=== PATIENT | female | born 1990 | race Caucasian/White ===

== ENCOUNTER 2021-09-27 00:39 | Inpatient (IN) ==
[2021-09-27] MEDS ORDERED: IBUPROFEN 600 MG TAB PO ONE (01:26)
[2021-09-27] MEDS ORDERED: OXYTOCIN 30 UNITS/500 ML BAG IV PRN ×2 (01:26→02:13)
--- NOTE | 2021-09-27 01:34 | History & Physical Report ---
Date of Service September 27, 2021 Assessment & Plan (1) Active labor: Plan: 31 y/o presented in active labor. Shortly after arrival, she underwent SROM and progressed to complete. See delivery note Admission and Anticipated Discharge Date Admission Date: September 27, 2021 History of Present Illness Chief Complaint: Contractions Primary Care Provider: Jadyn Brown 31 y/o at 39 6/7 wga presents w/ c/o ctx increasing in frequency and intensity. She states they started at 11pm q4min and became q2min shortly thereafter. 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 Hx: G1 2017 PPROM 35 wks, G2 2019 at 38 wks G3 Current 2019 pap wnl per pt Denies hx STIs Allergies Allergy/AdvReac Type Severity Reaction Status Date / Time cephalexin [From Keflex] Allergy tongue Verified 09/26/21 13:32 swelling Home Medications Medication Instructions Recorded Confirmed Type prenat.vits,kimberly,vul-vcxu-umrno 1 tab PO DAILY 02/07/21 09/26/21 History progesterone micronized 200 mg VAGINAL DAILY #30 tab 04/26/21 09/26/21 Rx sertraline 25 mg tablet (Zoloft) 50 mg PO DAILY tab 06/07/21 09/26/21 History ondansetron HCl 4 mg tablet 4 mg PO Q6H #30 tab 07/26/21 09/26/21 Rx (Zofran) Patient History Medical History (Updated 09/27/21 @ 01:34 by Hope Sultana MD) Depression History of chicken pox Surgical History History of colposcopy S/P ACL repair S/P breast augmentation S/P shoulder surgery Family History Father Heart disease Diabetes Denies family history of Ovarian cancer Breast cancer Colorectal cancer Social History Smoking Status: Never smoker Second Hand Exposure: No; Do You Dip or Chew Tobacco: No; Hx Alcohol Use: No Hx Substance Use: No Preferred Language: Cuban Communication Ability: Effective Manufacturer Agent Required: No Beliefs That Will Affect Care: None marital status: marital status details: Jan Arthur (33) [phone] Current Living Situation: Spouse and Family Current Living Situation Comment: 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 spouse, 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, 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, 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 occupational status: student current occupation: [employer] Other Information That Helps Us Care for You: No Feels Safe at Home: Yes Safety Concerns: Feels Safe At This Time Assistive Devices: None Physical Exam Genitourinary: Manual OB Exam: + cervical dilation 8 cm Results & Data ([facility]) Vital Signs (Past 12 Hours) Vital Signs Pulse BP 09/27/21 01:22 55 L 140/94 09/27/21 00:50 81 155/83 H Laboratory Results OB Labs: Blood Type AB Positive 02/15/21 Antibody ScreenD NEGATIVE 02/15/21 Hemoglobin 12.1 g/dL (12.0-16.0) 07/05/21 Hematocrit 36.5 % (37-47) L 07/05/21 Mean Corpuscular Volume 92.1 fL (80-100) 02/15/21 Platelet Count 215 K/uL (130-400) 02/15/21 Rubella IgG Antibody Immune (Immune) 02/15/21 Rapid Plasma Reagin Nonreactive (Nonreactive) 02/15/21 Hepatitis B Surface Antigen Neg (Neg) 02/15/21 HIV (1&2) Ab and P24 Ag, 4th Gener Neg (Neg) 02/15/21 Glucose 1 Hour 50 gm Load 175 mg/dl (70-130) H 07/05/21 Maternal Serum Alpha Fetoprotein 42.4 ng/mL 04/12/21 OB Optional Labs: Chlamydia trachomatis RNA NOT DETECTED (NOT DETECTED) 02/15/21 Neisseria gonorrhoeae RNA NOT DETECTED (NOT DETECTED) 02/15/21 Thyroid Stimulating Hormone (TSH) 0.859 uIu/ml (0.300-4.500) 07/20/20 Alpha Fetoprotein Triple Screen SEE NOTE 04/12/21 Labs Reviewed: cfdna low risk cf/sma neg afp neg--akh Normal 2hr GTT 07/09 Coding Level of Care Code None Diagnoses Active labor
--- NOTE | 2021-09-27 01:39 | Delivery Summary ---
Vaginal Delivery Summary Date of Service September 27, 2021 Vaginal Delivery Summary [facility] PREOPERATIVE DIAGNOSIS: 1. Single intrauterine at 39 6/7 wga 2. Labor 3. GBS+ 4. Hx PPROM and PTD POSTOPERATIVE DIAGNOSIS: 1. Single intrauterine at 39 6/7 wga 2. Labor 3. GBS+ 4. Hx PPROM and PTD 5. Delivered PROCEDURE: 1. Normal spontaneous vaginal delivery (precipitous) SURGEON: Hope Sultana MD ANESTHESIA: None ESTIMATED BLOOD LOSS: 300 mL FLUIDS: Continuous LR. URINE OUTPUT: None. COMPLICATIONS: None. CONDITION: Stable. INDICATIONS: 31 y/o at 39 6/7 wga presented in active labor at 8cm approx 1hr after she noted ctx to start regularly. She underwent SROM and rapidly progressed to complete and desired to push. FINDINGS: A viable female infant, weight pending with Apgars of 8 and 8 at 1 and 5 minutes respectively. SPECIMEN: Cord blood, cord gases OPERATIVE REPORT: The patient progressed to 10 cm, 100% effaced and +2 station, pushed over intact perineum without anesthesia to deliver a viable female infant, weight and Apgars as above. Head of delivered in ROBYN position. No nuchal cord was present. Body and shoulders were delivered without difficulty. was delivered to maternal abdomen and nursing staff. Delayed cord clamping was performed for 60 seconds. Cord was clamped and cut. Cord blood was obtained. Placenta delivered spontaneously intact with 3-vessel cord. IV oxytocin and fundal massage were given for excellent hemostasis. Vagina, cervix, perineum, and placenta were inspected. The perineum and bilateral labia were noted to be scraped but hemostatic and not needed to be repaired. Sponge and needle counts correct x2. No sponges were left behind. Mother and stable in immediate period. [facility] Vaginal Delivery Codes: 64561 global code for the antepartum, delivery, and post- Delivery Type Details: [facility]
[2021-09-27 01:59] LABS: Hematocrit (blood only) 38.1 % (37-47); Hemoglobin 12.7 g/dL (12.0-16.0); Mean Corpuscular Hemoglobin 31.3 pg (25-34); Mean Corpuscular Hgb Conc 33.3 g/dL (32-36); Mean Corpuscular Volume 93.8 fL (80-100); Mean Platelet Volume 10.8 fL (7.4-10.4); Platelet Count 184 K/uL (130-400); RDW Coefficient of Variation 14.2 % (11.5-14.5); RDW Standard Deviation 48.4 fL (36.4-46.3); Red Blood Count 4.06 M/uL (4.2-5.4); White Blood Count 14.01 K/uL (4.8-10.8)
[2021-09-27] MEDS ORDERED: DIPHTHERIA/TETANUS/PERTUSSIS 0.5 ML SYR/VIAL IM ONE (02:13)
[2021-09-27] MEDS ORDERED: BENZOCAINE 20% AER SPR 82.5 GM CAN EXT PRN (02:13)
[2021-09-27] MEDS ORDERED: bisacodyL 10 MG SUPP PR PRN (02:13)
[2021-09-27] MEDS ORDERED: ACETAMINOPHEN 325 MG TAB PO PRN (02:13)
[2021-09-27] MEDS ORDERED: HYDROCORTISONE ACETATE 25 MG SUPP PR PRN (02:13)
[2021-09-27 04:11] LABS: Base Excess Cord Arterial Bld 0.6 mEq/L (-9-1.8); Base Excess Cord Venous Blood 0.6 mEq/L (-7.7-1.9); CO2 Cord Arterial Blood 35 mmHg (39.1-73.5); Cord Venous Blood HCO3 24 mmol/L (18.4-26.8); Cord Venous Blood PCO2 36 mmHg (30.4-57.2); Cord Venous Blood PO2 29 mmHg (14.1-43.3); Cord Venous Blood pH 7.45 (7.20-7.44); HCO3 Cord Arterial Blood 24 mmol/L (19.7-28.5); PO2 Cord Arterial Blood 31 mmHg (4.1-31.7); pH Cord Arterial Blood 7.45 (7.1-7.38)
[2021-09-27] MEDS: IBUPROFEN 600 MG TAB PO PRN ×2 (08:20→20:20)
[2021-09-27] MEDS: DOCUSATE SODIUM 100 MG CAP PO SCH ×2 (08:20→20:15)
[2021-09-27] MEDS: PRENATAL VITAMIN 1 TAB PO SCH (08:20)
[2021-09-27] MEDS ORDERED: SERTRALINE HCL 50 MG TABLET PO SCH ×2 (09:00→21:00)
[2021-09-27] MEDS ORDERED: Nursing to Pharmacy Communication SCH (13:45)
--- NOTE | 2021-09-28 06:03 | Obstetrical Progress Note ---
Date of Service <Fátima Zuniga DO - Last Filed: 09/28/21 07:40> September 28, 2021 Assessment & Plan <Fátima Zuniga DO - Last Filed: 09/28/21 07:40> (1) Encounter for care and examination after delivery: 31 yo post op day1 from with GBS+ urine, doing well. -Continue routine post care. -vital signs reviewed and WNL (Tmax 36.8) -Blood Type AB+, GBS+ did not receive penicillin, Rubella immune -Encourage ambulation, monitor and control pain with Motrin, tylenol PRN, resume regular diet, monitor lochia -encourage breast feeding -hemoglobin 12.7 -patient comfortable going home today Day #:: 1 <Edith Hope, - Last Filed: 09/28/21 07:53> (1) Encounter for care and examination after delivery: Subjective <Fátima Zuniga DO - Last Filed: 09/28/21 07:40> Ambulation: ambulating normally Voiding: no voiding problems Passing Gas:: Yes Diet Tolerance:: regular diet Lochia:: Small Feeding Type:: breast feeding Current Pain Level(1-10): 2 Review of Systems Denies fever, chills, sweats Denies shortness of breath, difficulty breathing, chest pain, palpitations, chest pressure. Denies breast pain. Denies dysuria. Denies headache or changes in vision. Physical Exam <Fátima Zuniga DO - Last Filed: 09/28/21 07:40> General: Alert, oriented. No acute distress. Cardiac: Regular rate and rhythm, no murmurs/rubs/gallops. Respiratory: Clear to auscultation bilaterally a/p, no wheezes/rales/rhonchi. No increased work of breathing. Symmetrical chest rise. No respiratory distress. Abdomen: Soft, nontender, nondistended. Bowel sounds present. Uterus: Uterine fundus firm, palpable 1 cm below umbilicus. Lower Extremities: No lower extremity edema or swelling. No deep calf pain. Corky's negative bilaterally.. Results & Data ([facility]) <Fátima Zuniga DO - Last Filed: 09/28/21 07:40> Vital Signs (Past 12 Hours) Vital Signs Temp Pulse Resp BP Pulse Ox 09/27/21 23:30 36.8 C 57 L 16 99/65 L 96 09/27/21 19:50 36.8 C 60 16 117/73 97 <Edith Hope DO - Last Filed: 09/28/21 07:53> Co-Signing Physician Notes Resident Physician Supervision Note: I was present with Dr. Zuniga during the history and exam. I discussed the case with the resident and agree with the findings and plan as documented in the note. Any exceptions or clarifications are listed here: PPD#1 doing well. Desires DC home. Documented By: Edith Hope DO Resident Activity Tracking <Fátima Zuniga DO - Last Filed: 09/28/21 07:40> Resident Involvement: Resident Care Provided Care Provided: Adult Hospital Medicine
[2021-09-28] MEDS: IBUPROFEN 600 MG TAB PO PRN (08:16)
[2021-09-28] MEDS: PRENATAL VITAMIN 1 TAB PO SCH (08:16)
[2021-09-28] MEDS: DOCUSATE SODIUM 100 MG CAP PO SCH (08:16)
[2021-09-28] MEDS ORDERED: bisacodyL 5 MG TABEC PO SCH (20:00)
== END 2021-09-28 13:10 | disposition home or self-care (01) | DRG 807 ==
LOC: OPB 00:39 → 4S1 00:42 → 4S2 16:05
DX: Z37.0 Single live birth; O62.3 Precipitate labor; Z88.1 Allergy status to other antibiotic agents; O99.820 Streptococcus B carrier state complicating pregnancy; Z3A.40 40 weeks gestation of pregnancy; Z83.3 Family history of diabetes mellitus

== ENCOUNTER 2023-12-16 21:43 | Observation (INO) ==
[2023-12-16 22:45] LABS: Basophils # (auto) 0.08 K/uL (0.00-0.20); Basophils % (auto) 1.5 %; Eosinophils # (auto) 0.59 K/uL (0.00-0.50); Eosinophils % (auto) 10.8 %; Hematocrit (blood only) 45.1 % (37.0-47.0); Hemoglobin 15.3 g/dl (12.0-16.0); Immature Granulocytes # (auto) 0.01 K/uL (0.01-0.20); Immature Granulocytes % (auto) 0.2 %; Lymphocytes % (auto) 29.3 %; Mean Corpuscular Hemoglobin 30.7 pg (25.0-34.0); Mean Corpuscular Hgb Conc 33.9 g/dL (32.0-36.0); Mean Corpuscular Volume 90.4 fL (80.0-100.0); Mean Platelet Volume 10.5 fL (9.4-12.4); Monocytes # (auto) 0.54 K/uL (0.11-0.59); Monocytes % (auto) 9.9 %; Neutrophils # (auto) 2.64 K/uL (1.40-6.50); Neutrophils % (auto) 48.3 %; Platelet Count 179 K/uL (130-400); RDW Standard Deviation 39.8 fL (36.4-46.3); Red Blood Count 4.99 M/uL (4.20-5.40); White Blood Count 5.46 K/ul (4.8-10.8)
[2023-12-16 22:55] LABS: Appearance Urine Clear (Clear); Bacteria Urine Automated None Seen (None Seen); Bilirubin Urine Negative (Negative); Blood Urine Negative (Negative); Cast Urine Automated 0-2 /lpf (0-2); Color Urine Yellow; Epithelial Cell Urine Auto 0-2 /hpf (0-2); Glucose Urine UA Negative (Negative); Ketones Urine Negative (Negative); Leukocyte Esterase Urine Trace (Negative); Nitrite Urine Negative (Negative); Protein Urine Negative (Negative); RBC Urine Automated 0-2 /hpf (0-2); Specific Gravity Urine 1.005 (1.000-1.030); Urobilinogen Urine Negative (Negative); WBC Urine Automated 0-5 /hpf (0-5); pH Urine 7.5 (4.5-7.5)
[2023-12-16 23:03] LABS: BUN Creatinine Ratio 13.9 (10-20); Calcium 9.6 mg/dl (8.6-10.3); Est GFR (African American) 125.8 ml/min; Est GFR (Non-African American) 108.5 ml/min
[2023-12-16 23:04] LABS: Pregnancy Test, Serum Negative (Negative)
[2023-12-16 23:09] LABS: Albumin Globulin Ratio 1.8 (0.9-2); Albumin Level 4.8 gm/dl (3.4-5.0); Bilirubin,Total 0.6 mg/dl (0.2-1.0); Globulin 2.7 gm/dl (2.5-4.0); Total Protein 7.5 gm/dl (6.0-8.3)
[2023-12-16] MEDS: SUCRALFATE 1 GM/10 ML UDC PO STA (23:10)
[2023-12-16] MEDS: FAMOTIDINE 20MG IV PUSH 20 MG/5 ML SYR IV STA (23:10)
[2023-12-16] MEDS: SODIUM CHLORIDE 0.9% 1,000 ML IV ONE (23:13)
[2023-12-16] MEDS: PANTOprazole 40 MG in SYRINGE 0 ML IV ONE (23:46)
--- NOTE | 2023-12-17 | Emergency Department Note ---
History of Present Illness General Chief complaint: Abdominal Pain Stated complaint: UPPER ABD PAIN, NAUSEA, POOR APPETITE Time Seen by Provider: 12/16/23 22:49 History of Present Illness Maximum Pain Intensity: 4 This 33-year-old female who states she is healthy with no active medical problems presents the ER complaining of epigastric discomfort for the past 2 days. She has tried multiple antacids with no relief of symptoms. 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 Patient denies chest pain, dyspnea, diarrhea, flulike illness. No other concerns per patient. Home Medications Medication Instructions Recorded Confirmed Type cod liver oil 1 cap PO 2XWK 06/27/23 12/17/23 History duloxetine 60 mg capsule,delayed 60 mg PO DAILY #30 caps 10/30/23 12/17/23 Rx release ipratropium bromide 21 mcg (0.03 2 spray intranasal BID #30 mL 11/13/23 12/17/23 Rx %) nasal spray fluticasone propionate 110 1 puff inhalation BID #12 grams 11/25/23 12/17/23 Rx mcg/actuation HFA aerosol inhaler Noro-Mag 145 mg PO DAILY 12/17/23 12/17/23 History cyclobenzaprine 5 mg tablet 5 - 10 mg PO DIRECTED PRN 12/17/23 12/17/23 History muscle spasm Allergies Allergy/AdvReac Type Severity Reaction Status Date / Time cephalexin [From Keflex] Allergy Severe tongue Verified 12/17/23 00:41 swelling Past Med/Surg History Medical History History of chicken pox Depression Surgical History History of colposcopy S/P breast augmentation S/P shoulder surgery S/P ACL repair Family History Father Heart disease Diabetes Mother Hyperparathyroidism Osteoporosis Depression Denies family history of Ovarian cancer Breast cancer Colorectal cancer Uterine cancer Social History Smoking Status: Never smoker Second Hand Exposure: No; Do You Dip or Chew Tobacco: No; Hx Alcohol Use: Yes Alcohol type: wine Alcohol Intake Frequency: 2-4 x/Month Hx Substance Use: No Preferred Language: Armenian Communication Ability: Effective Visual Impairment: No Limitations Hearing Ability: Normal [place] Man Required: No Beliefs That Will Affect Care: None marital status: marital status details: Jan Arthur (36) [phone] Current Living Situation: Spouse and Family Current Living Situation Comment: lives with spouse, 3 children, 3 dogs current occupational status: employed 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 How many Children do You have: 3 Feels Safe at Home: Yes Childhood Exposure to Second-Hand Smoke: No Diet: regular caffeine: Yes (3 cups of coffee) during the past year weight has: remained stable Dental Care, Regularly: Yes Physical Activity Frequency: 5-6 Times per Week Seatbelt Use: always Sunscreen Use: Yes Assistive Devices: None Review of Systems A total of 10 systems reviewed and were otherwise negative Physical Exam Vital Signs Vital Signs - 24 hr 12/16/23 21:50 12/16/23 22:00 12/16/23 22:14 Temperature 36.5 C Temperature Source Temporal Artery Scan Pulse Rate 77 65 Pulse Rate [Left Apical] 69 Respiratory Rate 18 17 Respiratory Effort / Characteristics Non-Labored Respiratory Depth Normal Respiratory Pattern Blood Pressure 118/81 Blood Pressure [Right Arm] 130/86 Blood Pressure Mean 93 Blood Pressure Mean [Right Arm] 100 Blood Pressure Position Sitting Pulse Oximetry 98 99 Oxygen Delivery Method Room Air Room Air Sepsis Recent Fever Within 48 Hours No Sepsis New/Unexplained Change in Mental Status No Sepsis Action Taken by Nursing No Action Required 12/16/23 22:20 12/16/23 22:43 12/17/23 00:00 Temperature Temperature Source Pulse Rate 64 Pulse Rate [Left Apical] 62 66 Respiratory Rate 23 16 18 Respiratory Effort / Characteristics Non-Labored Non-Labored Spontaneous Respiratory Depth Normal Normal Respiratory Pattern Regular Blood Pressure Blood Pressure [Right Arm] 113/76 120/80 Blood Pressure Mean Blood Pressure Mean [Right Arm] 88 93 Blood Pressure Position Pulse Oximetry 95 95 98 Oxygen Delivery Method Room Air Room Air Room Air Sepsis Recent Fever Within 48 Hours Sepsis New/Unexplained Change in Mental Status Sepsis Action Taken by Nursing VITALS: Vitals are noted on the nurse's note and reviewed by myself. Vital signs stable. GENERAL: Pleasant female, in no acute distress, nondiaphoretic, well-developed well-nourished. SKIN: Capillary reflex less than 2 seconds. HEENT: Normocephalic. PERRLA. EOMI. Nares patent. Mucous membranes moist. Neck is supple without nuchal rigidity. HEART: Regular rate and rhythm LUNGS: Clear to auscultation bilaterally without wheezes, rales or rhonchi. No retractions or accessory muscle use. ABDOMEN: Positive bowel sounds x 4. Normal tympanic percussion. Soft, tender epigastric right upper quadrant, without masses or organomegaly. No guarding or rebound tenderness. no CVA tenderness MUSCULOSKELETAL: No gross musculoskeletal defects. NEURO: Patient was alert and oriented to person place and time. No focal neurological deficits. Course Administered Medications Metronidazole (Flagyl) 500 mg in 100 mls @ 100 mls/hr IV NOW STA; Protocol Stop: 12/17/23 01:34 Last Admin: 12/17/23 00:55 Dose: 100 mls/hr Documented By: BREEZY Discontinued Medications Pantoprazole Sodium 40 mg/ (Syringe) 10 mls @ 5 mls/min IV NOW ONE Stop: 12/16/23 23:01 Last Admin: 12/16/23 23:46 Dose: 5 mls/min Documented By: BREEZY Famotidine (Pepcid 20mg Iv Push) 20 mg in 5 mls @ 2.5 mls/min IV NOW STA Stop: 12/16/23 23:01 Last Admin: 12/16/23 23:10 Dose: 2.5 mls/min Documented By: BREEZY Sodium Chloride (Nss) 1,000 mls @ 999 mls/hr IV .Q1H1M ONE Stop: 12/17/23 00:09 Last Infusion: 12/17/23 00:21 Dose: Infused Documented By: Admin: 12/16/23 23:13 Dose: 999 mls/hr Documented By: BREEZY Sucralfate (Sucralfate 1 Gm/10 Ml Udc) 1 gm PO NOW STA Stop: 12/16/23 23:01 Last Admin: 12/16/23 23:10 Dose: 1 gm Documented By: BREEZY Medical Decision Making Medical Records Attestation: I reviewed the patient's medical records. Home Medications Current Medication List: was personally reviewed by me Laboratory Data Attestation: I reviewed the patient's lab results. 12/16/23 21:58 12/16/23 21:58 Lab Results 12/16/23 12/16/23 Range/Units 21:58 22:30 WBC 5.46 (4.8-10.8) K/ul RBC 4.99 (4.20-5.40) M/uL Hgb 15.3 (12.0-16.0) g/dl Hct 45.1 (37.0-47.0) % MCV 90.4 (80.0-100.0) fL MCH 30.7 (25.0-34.0) pg MCHC 33.9 (32.0-36.0) g/dL RDW Std Deviation 39.8 (36.4-46.3) fL RDW Coeff of Paul 12.0 (11.5-14.5) % Plt Count 179 (130-400) K/uL MPV 10.5 (9.4-12.4) fL Immature Gran % (Auto) 0.2 % Neut % (Auto) 48.3 % Lymph % (Auto) 29.3 % Pratt % (Auto) 9.9 % Eos % (Auto) 10.8 % Baso % (Auto) 1.5 % Neut # (Auto) 2.64 (1.40-6.50) K/uL Lymph # (Auto) 1.60 (1.20-3.40) K/uL Pratt # (Auto) 0.54 (0.11-0.59) K/uL Eos # (Auto) 0.59 H (0.00-0.50) K/uL Baso # (Auto) 0.08 (0.00-0.20) K/uL Immature Gran # (Auto) 0.01 (0.01-0.20) K/uL PT 13.0 H (9.0-12.0) Seconds INR 1.2 H (0.9-1.1) APTT 33 H (21-31) Seconds PTT Ratio 1.2 Sodium 137 (136-145) mmol/L Potassium 4.0 (3.5-5.1) mmol/L Chloride 100 (98-107) mmol/L Carbon Dioxide 30 (21-32) mmol/L Anion Gap 7 (3-11) BUN 10 (6-23) mg/dl Creatinine 0.72 (0.6-1.2) mg/dl Est Cr Clr Drug Dosing 110.0 ml/min Est GFR ( Amer) 125.8 ml/min Est GFR (Non-Af Amer) 108.5 ml/min BUN/Creatinine Ratio 13.9 (10-20) Glucose 82 (70-99(Fasting)) mg/dl Calcium 9.6 (8.6-10.3) mg/dl Total Bilirubin 0.6 (0.2-1.0) mg/dl AST 1142 H (13-39) U/L ALT 2278 H (7-52) U/L Alkaline Phosphatase 88 (34-104) U/L Total Creatine Kinase 53 (26-192) U/L Total Protein 7.5 (6.0-8.3) gm/dl Albumin 4.8 (3.4-5.0) gm/dl Globulin 2.7 (2.5-4.0) gm/dl Albumin/Globulin Ratio 1.8 (0.9-2) Lipase 27 (11-82) U/L HCG, Qual Negative (Negative) Urine Color Yellow Urine Appearance Clear (Clear) Urine pH 7.5 (4.5-7.5) Ur Specific Tate 1.005 (1.000-1.030) Urine Protein Negative (Negative) Urine Glucose (UA) Negative (Negative) Urine Ketones Negative (Negative) Urine Blood Negative (Negative) Urine Nitrite Negative (Negative) Urine Bilirubin Negative (Negative) Urine Urobilinogen Negative (Negative) Ur Leukocyte Esterase Trace H (Negative) Urine WBC (Auto) 0-5 (0-5) /hpf Urine RBC (Auto) 0-2 (0-2) /hpf U Hyaline Cast (Auto) 0-2 (0-2) /lpf U Epithel Cells (Auto) 0-2 (0-2) /hpf Urine Bacteria (Auto) None Seen (None Seen) Acetaminophen 9 L (10-30) ug/ml Monoscreen Negative (Negative) Imaging Data Attestation: I personally reviewed and interpreted this imaging study as follows: Radiologist's Impression: Gallbladder Ultrasound 12/16/23 23:00 Exam(s): US GALLBLADDER EXAM: US Abdomen Limited, Gallbladder CLINICAL HISTORY: Reason for exam: epi pain. TECHNIQUE: Real-time ultrasound of the right upper quadrant with image documentation. COMPARISON: No relevant prior studies available. FINDINGS: Gallbladder: Extensive gallbladder wall thickening measuring 1 cm in thickness. Gallbladder is nondistended. Trace pericholecystic fluid. No cholelithiasis. Common bile duct: Common bile duct measures 1.9 mm diameter. No stones. No dilation. Pancreas: Unremarkable as visualized. IMPRESSION: Findings suggestive acute cholecystitis. Clinical correlation recommended. Electronically signed by: Donny Ramos MD 12/17/23 00:20 AM MDM Narrative Prior records/ancillary studies reviewed. Triage Nursing notes reviewed. Additional history obtained from nursing. The patient's history was concerning for abdominal pain. Differential diagnosis: Etiologies such as appendicitis, diverticulitis, PUD, biliary pathology, UTI, pancreatitis, obstruction, mesenteric ischemia, aortic pathology, infections, inflammatory bowel disease, renal colic, as well as others were entertained. Physical examination findings: As above. ER treatment provided: An order was placed for continuous cardiac monitoring. The monitor shows a rate of 60-100 with a sinus rhythm per my Independent interpretation. IV fluids, Carafate, Protonix, Pepcid was ordered Cipro and Flagyl were ordered for acute cholecystitis On reassessment the patient felt better. Diagnostics interpreted by me: ECG: Ordered for upper abdominal pain EKG: Normal sinus, normal intervals, no acute ST-T wave changes. Impression normal sinus rhythm independently interpreted by myself The labs Independently Interpreted by myself revealed elevated LFTs. Normal bilirubin. No worrisome leukocytosis. Normal platelets. Hepatitis panel sent Imaging studies: Ultrasound as above Consultation: A consultation was placed with the surgeon, Dr. Lemons. The case was discussed and diagnostics were reviewed. He recommends medical admission and a HIDA scan. Medicine was consulted and the case was discussed. Patient be admitted to the medical service. The patient was evaluated in the ER for further treatment. Exam and history seem consistent with acute cholecystitis with elevated liver functions. Patient started on antibiotics. Medicine and surgery were consulted and the case was discussed. She will be admitted to the medical service for further evaluation and workup. Surgery is requesting a HIDA scan. Patient is agreeable treatment plan. Normal bilirubin. Normal lipase. No common bile duct dilation By the evaluation outlined above emergent etiologies such as appendicitis, diverticulitis, PUD, UTI, pancreatitis, mesenteric ischemia, aortic pathology, inflammatory bowel disease, renal colic, as well as others were deemed relatively unlikely. The pt informed about the findings as listed above. All questions were answered and pleased with the treatment. The chart was completed utilizing [employer] voice recognition software. Grammatical errors, random word insertions, pronoun errors, and incomplete sentences are an occassional consequence of this system due to software limitations, ambient noise, and hardware issues. Any formal questions or concerns about the content, text, or information contained within the body of this dictation should be directly addressed to the physician circulation assistant for clarification. Impression & Plan Acute cholecystitis, Transaminitis Discharge Plan Visit Data Chief Complaint: Abdominal Pain Stated Complaint: UPPER ABD PAIN, NAUSEA, POOR APPETITE ED Provider: Bhumi Angela ED Midlevel Provider: Su Krause Discharge Problem: Acute cholecystitis, Transaminitis Patient Disposition: Admitted As Inpatient Condition: Good Discharge Instructions Interventions: ED Discharge Assessment Last Done: 12/17/23 01:32 Forms Stand Alone Forms: [facility] [employer] Prescriptions Prescriptions: No Action duloxetine 60 mg capsule,delayed release(DR/EC) 60 mg PO DAILY Qty: 30 6RF Rx Instructions: pt aware dose change ipratropium bromide 21 mcg (0.03 %) spray,non-aerosol 2 spray intranasal BID Qty: 30 4RF Rx Instructions: administer into each nostril fluticasone propionate 110 mcg/actuation HFA aerosol inhaler 1 puff inhalation BID Qty: 12 2RF cod liver oil Capsule 1 cap PO 2XWK Noro-Mag 145 mg PO DAILY cyclobenzaprine 5 mg tablet 5 - 10 mg PO DIRECTED PRN (Reason: muscle spasm) Referrals Referrals: Jaja Ge CRNP [Primary Care Provider] -
[2023-12-17 00:10] LABS: INR 1.2 (0.9-1.1); Partial Thromboplastin Ratio 1.2; Partial Thromboplastin Time 33 Seconds (21-31)
--- NOTE | 2023-12-17 00:14 | History & Physical Report ---
Date of Service December 17, 2023 Assessment & Plan (1) Acute cholecystitis: Plan: - noting on US, HIDA scan pending - ED discussed with general surgery; will consult - transaminitis noted, INR= 1.2; continue to trend - Continue cipro, flagyl - Morphine prn q4H for pain- 2mg pain 6-8, 4mg pain 9-10 -NPO pending surgery eval- maintenance fluids with LR@100ml/hr (2) Transaminitis: Plan: Plan as per above (3) Anxiety: Plan: - continue home medications; duloxetine Plan Diet: NPO pending surgery evaluation Code: Full VTE Prophylaxis: SCD, hold chemical pending surgery evaluation History of Present Illness Primary Care Provider: JEB Ramirez 33 year old female with a past medical history of anxiety presenting with fever x 3 days and RUQ pain. Pain x 2 days. Worst RUQ, decreased appetite. Denies chest pain, dyspnea, diarrhea, constipation. Tried anti-acids at home with minimal relief. 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 No prior abd ominal surgeries. In ED- transaminitis with GGX=[id number], NAU=3078. Gallbladder US with acute cholecystitis, no cholelithiasis. Allergies Allergy/AdvReac Type Severity Reaction Status Date / Time cephalexin [From Keflex] Allergy Severe tongue Verified 12/17/23 00:41 swelling Home Medications Medication Instructions Recorded Confirmed Type cod liver oil 1 cap PO 2XWK 06/27/23 12/17/23 History duloxetine 60 mg capsule,delayed 60 mg PO DAILY #30 caps 10/30/23 12/17/23 Rx release ipratropium bromide 21 mcg (0.03 2 spray intranasal BID #30 mL 11/13/23 12/17/23 Rx %) nasal spray fluticasone propionate 110 1 puff inhalation BID #12 grams 11/25/23 12/17/23 Rx mcg/actuation HFA aerosol inhaler Noro-Mag 145 mg PO DAILY 12/17/23 12/17/23 History cyclobenzaprine 5 mg tablet 5 - 10 mg PO DIRECTED PRN 12/17/23 12/17/23 H istory muscle spasm Past Med/Surg History Medical History History of chicken pox Depression Surgical History History of colposcopy S/P breast augmentation S/P shoulder surgery S/P ACL repair Family History Father Heart disease Diabetes Mother Hyperparathyroidism Osteoporosis Depression Denies family history of Ovarian cancer Breast cancer Colorectal cancer Uterine cancer Social History Smoking Status: Never smoker Second Hand Exposure: No; Do You Dip or Chew Tobacco: No; Hx Alcohol Use: Yes Alcohol type: wine Alcohol Intake Frequency: 2-4 x/Month Hx Substance Use: No Preferred Language: Turkmen Communication Ability: Effective Visual Impairment: No Limitations Hearing Ability: Normal Shield Cleaner Required: No Beliefs That Will Affect Care: None marital status: marital status details: Jan Arthur (36) [phone] Current Living Situation: Family Current Living Situation Comment: lives in 2 story home with and 3 yound children current occupational status: employed 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 How many Children do You have: 3 Other Information That Helps Us Care for You: No Feels Safe at Home: Yes Safety Concerns: Feels Safe At This Time Childhood Exposure to Second-Hand Smoke: No Diet: regular caffeine: Yes (3 cups of coffee) during the past year weight has: remained stable Dental Care, Regularly: Yes Physical Activity Frequency: 5-6 Times per Week Seatbelt Use: always Sunscreen Use: Yes Assistive Devices: None Review of Systems Review of Systems: As per above Physical Exam Physical Exam: Constitutional: well-appearing, no acute distress HEENT: NCAT, no conjunctival injection CV: regular rhythm, no murmur appreciated, extremities well-perfused, no LE edema Resp: CTABL, no wheezes/rales/rhonchi appreciated, no increased work of breathing GI: soft, nondistended, +RUQ tenderness, BS normoactive MSK: no gross deformities appreciated Skin: warm, dry, no rash appreciated Neuro: alert, oriented, no focal neurologic deficit appreciated Results & Data Results & Data Vital Signs (Past 12 Hours) Vital Signs Temp Pulse Pulse Resp BP BP Pulse Ox 12/16/23 22:43 62 16 113/76 95 12/16/23 22:20 64 23 95 12/16/23 22:14 65 12/16/23 22:00 69 17 130/86 99 12/16/23 21:50 36.5 C 77 18 118/81 98 O2 Del Method 12/16/23 22:43 Room Air 12/16/23 22:20 Room Air 12/16/23 22:14 12/16/23 22:00 Room Air 12/16/23 21:50 Room Air Supervising Physician Co-Signing Physician Notes Attending addendum: I have physically seen this patient, have supervised the medical residents activities, and agree with the H&P unless as otherwise noted. Assessment and Plan: Acute cholecystitis- NPO Transaminitis with AST 1142 and ALT 2278 Acute hepatitis panel pending, other viral studies pending, acetaminophen level negative Ultrasound suggestive of acute cholecystitis General surgery is requested HIDA scan to be performed which is ordered Placed on Cipro 400 mg IV every 12 hours and Flagyl 500 mg IV every 8 hours, due to severe cephalosporin allergy Morphine sulfate 4 mg IV every 4 hours. Consult to general surgery Anxiety- hold duloxetine for now while NPO Resident Activity Tracking Resident Involvement: Resident Care Provided Care Provided: Adult Hospital Medicine
--- NOTE | 2023-12-17 00:21 | Ultrasound Report ---
Exam(s): US GALLBLADDER EXAM: US Abdomen Limited, Gallbladder CLINICAL HISTORY: Reason for exam: epi pain. TECHNIQUE: Real-time ultrasound of the right upper quadrant with image documentation. COMPARISON: No relevant prior studies available. FINDINGS: Gallbladder: Extensive gallbladder wall thickening measuring 1 cm in thickness. Gallbladder is nondistended. Trace pericholecystic fluid. No cholelithiasis. Common bile duct: Common bile duct measures 1.9 mm diameter. No stones. No dilation. Pancreas: Unremarkable as visualized. IMPRESSION: Findings suggestive acute cholecystitis. Clinical correlation recommended. Electronically signed by: Donny Ramos MD 12/17/23 00:20 AM
[2023-12-17] MEDS ORDERED: CIPROFLOXACIN / D5W 400 MG/200 ML BAG IV STA (00:35)
[2023-12-17] MEDS: metroNIDAZOLE 500 MG/100 ML BAG IV STA (00:55)
[2023-12-17] MEDS ORDERED: MoRPHine SULFATE 4 MG/ML 1 ML CARP\\VIAL IV PRN (01:47)
[2023-12-17] MEDS: MoRPHine SULFATE 2 MG/ML CARP IV ONE (01:56)
[2023-12-17] MEDS: LACTATED RINGER'S 1,000 ML IV SCH (02:13)
[2023-12-17] MEDS ORDERED: ONDANSETRON INJ 2 MG/ML 2 ML VIAL IV PRN (02:22)
[2023-12-17] MEDS: MELATONIN 3 MG TAB PO PRN (03:43)
[2023-12-17] MEDS: CIPROFLOXACIN / D5W 400 MG/200 ML BAG IV SCH (03:43)
[2023-12-17] MEDS: MoRPHine SULFATE 2 MG/ML CARP IV PRN (05:55)
[2023-12-17 08:28] LABS: Basophils # (auto) 0.08 K/uL (0.00-0.20); Basophils % (auto) 1.8 %; Eosinophils # (auto) 0.44 K/uL (0.00-0.50); Eosinophils % (auto) 10.1 %; Hematocrit (blood only) 38.2 % (37.0-47.0); Hemoglobin 13.1 g/dl (12.0-16.0); Immature Granulocytes # (auto) 0.01 K/uL (0.01-0.20); Immature Granulocytes % (auto) 0.2 %; Lymphocytes # (auto) 1.27 K/uL (1.20-3.40); Lymphocytes % (auto) 29.2 %; Mean Corpuscular Hemoglobin 30.6 pg (25.0-34.0); Mean Corpuscular Hgb Conc 34.3 g/dL (32.0-36.0); Mean Corpuscular Volume 89.3 fL (80.0-100.0); Mean Platelet Volume 10.4 fL (9.4-12.4); Monocytes # (auto) 0.53 K/uL (0.11-0.59); Monocytes % (auto) 12.2 %; Neutrophils # (auto) 2.02 K/uL (1.40-6.50); Neutrophils % (auto) 46.5 %; Platelet Count 141 K/uL (130-400); RDW Standard Deviation 38.8 fL (36.4-46.3); Red Blood Count 4.28 M/uL (4.20-5.40); White Blood Count 4.35 K/ul (4.8-10.8)
[2023-12-17 08:45] LABS: BUN Creatinine Ratio 11.3 (10-20); Creatinine Clr Calc Pharmacy 127.8 ml/min; Est GFR (African American) 135.4 ml/min; Est GFR (Non-African American) 116.8 ml/min; Potassium 3.7 mmol/L (3.5-5.1)
[2023-12-17 08:49] LABS: INR 1.3 (0.9-1.1); Prothrombin Time 13.9 Seconds (9.0-12.0)
--- NOTE | 2023-12-17 08:54 | Surgery Consultation ---
Date of Consultation December 17, 2023 Assessment & Plan (1) Transaminitis: elevated transaminitis but normal TB US without signs of stones agree with HIDA could be hepatic issue without cholecystitis, no stones seen gallbladder findings could be reactive await HIDA results History of Present Illness Attending Physician: Matt Sahu MD History of Present Illness This is a 33YO with acute RUQ pain for the last few days. Still having pain. Has anorexia but denies fever or chills. Her labs have elevated AST/ALT with normal TB/alk phos. US with inflammatory changes but no stones or no dilated CBD. Allergies Allergy/AdvReac Type Severity Reaction Status Date / Time cephalexin [From Keflex] Allergy Severe tongue Verified 12/17/23 00:41 swelling Home Medications Medication Instructions Recorded Confirmed Type cod liver oil 1 cap PO 2XWK 06/27/23 12/17/23 History duloxetine 60 mg capsule,delayed 60 mg PO DAILY #30 caps 10/30/23 12/17/23 Rx release ipratropium bromide 21 mcg (0.03 2 spray intranasal BID #30 mL 11/13/23 12/17/23 Rx %) nasal spray fluticasone propionate 110 1 puff inhalation BID #12 grams 11/25/23 12/17/23 Rx mcg/actuation HFA aerosol inhaler Noro-Mag 145 mg PO DAILY 12/17/23 12/17/23 History cyclobenzaprine 5 mg tablet 5 - 10 mg PO DIRECTED PRN 12/17/23 12/17/23 History muscle spasm Patient History Medical History History of chicken pox Depression Surgical History History of colposcopy S/P breast augmentation S/P shoulder surgery S/P ACL repair Family History Father Heart disease Diabetes Mother Hyperparathyroidism Osteoporosis Depression Denies family history of Ovarian cancer Breast cancer Colorectal cancer Uterine cancer Social History Smoking Status: Never smoker Second Hand Exposure: No; Do You Dip or Chew Tobacco: No; Hx Alcohol Use: Yes Alcohol type: wine Alcohol Intake Frequency: 2-4 x/Month Hx Substance Use: No Preferred Language: Afghan Communication Ability: Effective Visual Impairment: No Limitations Hearing Ability: Normal Payable Manager Required: No Beliefs That Will Affect Care: None marital status: marital status details: Jan Arthur (36) [phone] Current Living Situation: Family Current Living Situation Comment: lives in 2 story home with and 3 yound children current occupational status: employed 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 How many Children do You have: 3 Other Information That Helps Us Care for You: No Feels Safe at Home: Yes Safety Concerns: Feels Safe At This Time Childhood Exposure to Second-Hand Smoke: No Diet: regular caffeine: Yes (3 cups of coffee) during the past year weight has: remained stable Dental Care, Regularly: Yes Physical Activity Frequency: 5-6 Times per Week Seatbelt Use: always Sunscreen Use: Yes Assistive Devices: None Review of Systems Constitutional: + anorexia; no fever and no chills Eyes: no problem reported Ear, Nose, Mouth, Throat: no problem reported Respiratory: no cough and no dyspnea Cardiovascular: no chest pain Gastrointestinal: + abdominal pain and + nausea; no vomiti ng and no change in bowel habits Genitourinary: no dysuria Musculoskeletal: no problem reported Integumentary: no problem reported Neurologic: no localized weakness and no generalized weakness Psychiatric: no behavioral changes Hematologic / Lymphatic: no easy bleeding and no easy bruising Physical Exam Constitutional: WD/WN, vitals as above Eyes: PERRL, conjunctivae normal, anicteric sclerae Neck: trachea midline Respiratory: normal respiratory effort, lungs clear to auscultation Cardiovascular: RRR, no murmur, no edema Gastrointestinal (Abdomen): Inspection/Auscultation: abdomen normal to inspection and normal bowel sounds; abdomen not distended Percussion/Palpation: + abdomen tender and abdomen soft; no guarding and abdomen not rigid Musculoskeletal: Head/Neck/Chest: normocephalic and head atraumatic Skin: no rashes, warm and dry Psychiatric: Orientation: alert Results & Data Vital Signs (Past 12 Hours) Vital Signs Temp Pulse Pulse Pulse Resp BP BP 12/17/23 07:24 36.5 C 64 14 111/76 12/17/23 01:50 36.6 C 66 16 12/17/23 00:00 66 18 12/16/23 22:43 62 16 12/16/23 22:20 64 23 12/16/23 22:14 65 12/16/23 22:00 69 17 12/16/23 21:50 36.5 C 77 18 118/81 BP Pulse Ox O2 Del Method 12/17/23 07:24 96 Room Air 12/17/23 01:50 112/75 98 Room Air 12/17/23 00:00 120/80 98 Room Air 12/16/23 22:43 113/76 95 Room Air 12/16/23 22:20 95 Room Air 12/16/23 22:14 12/16/23 22:00 130/86 99 Room Air 12/16/23 21:50 98 Room Air Diagnostic Findings EXAM: US Abdomen Limited, Gallbladder CLINICAL HISTORY: Reason for exam: epi pain. TECHNIQUE: Real-time ultrasound of the right upper quadrant with image documentation. COMPARISON: No relevant prior studies available. FINDINGS: Gallbladder: Extensive gallbladder wall thickening measuring 1 cm in thickness. Gallbladder is nondistended. Trace pericholecystic fluid. No cholelithiasis. Common bile duct: Common bile duct measures 1.9 mm diameter. No stones. No dilation. Pancreas: Unremarkable as visualized. IMPRESSION: Findings suggestive acute cholecystitis. Clinical correlation recommended.
[2023-12-17 09:02] LABS: Albumin Globulin Ratio 1.8 (0.9-2); Albumin Level 3.7 gm/dl (3.4-5.0); Bilirubin,Total 0.7 mg/dl (0.2-1.0); Globulin 2.1 gm/dl (2.5-4.0); Magnesium 1.9 mg/dl (1.7-2.4); Total Protein 5.8 gm/dl (6.0-8.3)
[2023-12-17] MEDS: FLUTICASONE FUROATE 100MCG 14 PUFFS/INHALER INH SCH (09:07)
[2023-12-17] MEDS: metroNIDAZOLE 500 MG/100 ML BAG IV SCH (09:07)
[2023-12-17] MEDS: DULoxetine HCL 60 MG CAP PO SCH ×2 (10:24→20:34)
--- NOTE | 2023-12-17 11:21 | Hospitalist Progress Note ---
Date of Service December 17, 2023 Assessment & Plan (1) Acute cholecystitis: Plan: - Presented with fever x3 days and RUQ abdominal pain x2 days. - US suggestive of acute cholecystitis, inflammatory changes, but no stones or CBD dilation. - Transaminitis without elevation in total bilirubin. Transaminitis improving 12/17/23. Monitor in AM. -- ?hepatic etiology vs acute cholecystitis. - HIDA scan revealed no evidence of cholecystitis. Gallbladder ejection fraction 90%. - General surgery consulted. Discussed results of HIDA with Dr. Krishnan - possible surgery tomorrow, 12/18/23. - Monoscreen negative. EBV panel pending. - Hepatitis panel pending. - Parvovirus pending. - Continue cipro, flagyl. Consider discontinuing due to no leukocytosis. - Morphine prn q4H for pain- 2mg pain 6-8, 4mg pain 9-10 - Clear liquid diet today, NPO at midnight due to possible surgery. (2) Transaminitis: Plan: Plan as per above (3) Anxiety: Plan: - Continue home medications; duloxetine Plan Reviewed HIDA scan results and Discussed results with Dr. Krishnan regarding plan moving forward. Clear liquids today, and NPO at midnight due to possible surgery tomorrow. Code: Full VTE Prophylaxis: SCD, hold chemical pending surgery evaluation Admission and Anticipated Discharge Date Admission Date: December 17, 2023 Subjective Patient seen and evaluated at bedside. She reports significant headache that she has had for 5 days now. It is relieved best with ibuprofen. Patient reports minimal abdominal pain. She denies abdominal pain at this time. HIDA scan revealed no evidence of cholecystitis with gallbladder ejection fraction 90%. Clear liquid diet was resumed. Patient is n.p.o. at midnight due to possible surgery tomorrow, 12/18/2023. Physical Exam Physical Exam: General: No acute distress, nondiaphoretic, well-developed, well-nourished. Skin: The skin was without rashes, erythema, edema, or bruising. Cardiac: Regular rate and rhythm without murmurs gallops or rubs. Pulm: Clear to auscultation bilaterally without wheezes, rales or rhonchi. No retractions or accessory muscle use. Abdominal: Positive bowel sounds. Soft, nondistended, without masses or organomegaly. + RUQ tenderness. Neuro: A&O x3. No focal neurological deficits. Results & Data Results & Data Vital Signs (Past 12 Hours) Vital Signs Temp Pulse Pulse Resp BP BP Pulse Ox 12/17/23 07:24 36.5 C 64 14 111/76 96 12/17/23 01:50 36.6 C 66 16 112/75 98 12/17/23 00:00 66 18 120/80 98 O2 Del Method 12/17/23 07:24 Room Air 12/17/23 01:50 Room Air 12/17/23 00:00 Room Air Laboratory Results Reviewed CBC Reviewed CMP Reviewed US Diagnostic Findings Reviewed HIDA scan 12/17/2023: FINDINGS: The hepatobiliary scan shows prompt and homogeneous hepatic uptake. There is visualized activity within the intra and extrahepatic biliary tree at 10 minutes, and within the gallbladder at 10 minutes. There is normal biliary to bowel transit, with small bowel visualized by 30 minutes. There is likely reflux of tracer into the stomach. On the sincalide imaging, the gallbladder ejection fraction was measured at 98%. IMPRESSION: 1. There is no scintigraphic evidence of cholecystitis. 2. The gallbladder ejection fraction measured 98% which is normal. PG Care Time/CCT Total # of Minutes Spent Total Time Spent with Patient: Total time spent is greater than 50% in coordination of care (as documented) at patient's floor/unit and/or counseling patient: Coding Level of Care Code 11002 SUB INP/OBS CARE 3/50MIN Diagnoses Acute cholecystitis K81.0 Transaminitis R74.01 Anxiety F41.9
[2023-12-17] MEDS: IBUPROFEN 600 MG TAB PO STA (11:29)
[2023-12-17] MEDS: IBUPROFEN 200 MG TAB PO STA (11:55)
--- NOTE | 2023-12-17 14:15 | Nuclear Medicine Report ---
NUCLEAR HEPATOBILIARY SCAN WITH EJECTION FRACTION IMAGING CLINICAL HISTORY: Upper abdominal pain. Abnormal right upper quadrant ultrasound. COMPARISON STUDY: Abdominal ultrasound dated 12/16/2023. TECHNIQUE: Dynamic images of the liver and anterior abdomen were obtained every 5 minutes for a total of 60 minutes following the IV administration of 5.5 mCi of technetium 99m Mebrofenin. 1.41 mcg of sincalide was then injected with additional images acquired every 5 minutes for 45 minutes to calcul ate the gallbladder ejection fraction. FINDINGS: The hepatobiliary scan shows prompt and homogeneous hepatic uptake. There is visualized act ivity within the intra and extrahepatic biliary tree at 10 minutes, and within the gallbladder at 10 minutes. There is normal biliary to bowel transit, with small bowel visualized by 30 minutes. There is likely reflux of tracer into the stomach. On the sincalide imaging, the gallbladder ejection fraction was measured at 98%. IMPRESSION: 1. There is no scintigraphic evidence of cholecystitis. 2. The gallbladder ejection fraction measured 98% which is normal. ACT 112: Negative or not required by law. Electronically signed by: Armin El M.D. 12/17/2023 2:14 PM
[2023-12-17] MEDS: SINCALIDE IV ONE (15:35)
[2023-12-17] MEDS: SODIUM CHLORIDE 0.9% IV ONE (15:35)
[2023-12-17] MEDS: POLYETHYLENE (MIRALAX) 17 GM PACK PO PRN (17:14)
--- NOTE | 2023-12-17 18:58 | Billing Data ---
Date of Service December 17, 2023 Coding Level of Care Code 12575 INT INP/OBS CARE
[2023-12-17] MEDS: IBUPROFEN 200 MG TAB PO PRN (21:25)
[2023-12-18] MEDS ORDERED: ACETAMINOPHEN 1000 MG/100 ML IV IV ONE (07:35)
[2023-12-18 07:37] LABS: Basophils # (auto) 0.08 K/uL (0.00-0.20); Basophils % (auto) 1.8 %; Eosinophils # (auto) 0.52 K/uL (0.00-0.50); Eosinophils % (auto) 11.4 %; Hematocrit (blood only) 39.1 % (37.0-47.0); Hemoglobin 13.3 g/dl (12.0-16.0); Immature Granulocytes # (auto) 0.01 K/uL (0.01-0.20); Immature Granulocytes % (auto) 0.2 %; Lymphocytes # (auto) 1.42 K/uL (1.20-3.40); Lymphocytes % (auto) 31.1 %; Mean Corpuscular Hemoglobin 30.5 pg (25.0-34.0); Mean Corpuscular Volume 89.7 fL (80.0-100.0); Mean Platelet Volume 10.4 fL (9.4-12.4); Monocytes # (auto) 0.57 K/uL (0.11-0.59); Monocytes % (auto) 12.5 %; Neutrophils # (auto) 1.97 K/uL (1.40-6.50); Platelet Count 171 K/uL (130-400); RDW Standard Deviation 39.5 fL (36.4-46.3); Red Blood Count 4.36 M/uL (4.20-5.40); White Blood Count 4.57 K/ul (4.8-10.8)
[2023-12-18 08:20] LABS: BUN Creatinine Ratio 10.3 (10-20); Calcium 8.7 mg/dl (8.6-10.3); Creatinine Clr Calc Pharmacy 116.5 ml/min; Est GFR (African American) 131.3 ml/min; Est GFR (Non-African American) 113.3 ml/min; Potassium 4.1 mmol/L (3.5-5.1)
[2023-12-18 08:38] LABS: Albumin Globulin Ratio 1.7 (0.9-2); Albumin Level 3.8 gm/dl (3.4-5.0); Bilirubin,Total 0.9 mg/dl (0.2-1.0); Globulin 2.2 gm/dl (2.5-4.0); Magnesium 1.9 mg/dl (1.7-2.4)
--- NOTE | 2023-12-18 09:01 | Hospitalist Progress Note ---
Date of Service December 18, 2023 Assessment & Plan (1) Acute cholecystitis: Plan: - noting on US, HIDA scan pending - ED discussed with general surgery; will consult - transaminitis noted, INR= 1.2; continue to trend - Continue cipro, flagyl - Morphine prn q4H for pain- 2mg pain 6-8, 4mg pain 9-10 -NPO pending surgery eval- maintenance fluids with LR@100ml/hr 12/17 HIDA scan negative, surgery does not plan for surgery today LFTs w/ normal TB/ALP, AST 810--> 725, ALT 1706--> 1703. EBV/CMV/parvovirus testing, hepatitis panel Review of home meds, patient on duloxetine 60mg HS, will need to inquire about if this is new med/increasing in dosing as can cause increased serum alanine aminotransferase -- appears did trial cymbalta startting in Sep w/ titrations up and off sertaline. also was given rx for muscle relaxer for flexeril at that time Also on cod liver oil which is uncommon but can cause mild increeases in serum ALT levels without changes in ALP/bilirubin (2) Transaminitis: Plan: Plan as per above (3) Anxiety: Plan: - continue home medications; duloxetine Plan Diet: NPO pending surgery evaluation Code: Full VTE Prophylaxis: SCD, hold chemical pending surgery evaluation Admission and Anticipated Discharge Date Admission Date: December 17, 2023 Results & Data Results & Data Vital Signs (Past 12 Hours) Vital Signs Temp Pulse Resp BP Pulse Ox O2 Del Method 12/18/23 08:38 36.7 C 68 16 119/82 97 Room Air 12/17/23 21:00 36.6 C 61 18 108/73 96 Room Air PG Care Time/CCT Total # of Minutes Spent Total Time Spent with Patient: Total time spent is greater than 50% in coordination of care (as documented) at patient's floor/unit and/or counseling patient: Coding Diagnoses Acute cholecystitis K81.0 Transaminitis R74.01 Anxiety F41.9
--- NOTE | 2023-12-18 09:15 | Surgery Progress Note ---
Date of Service December 18, 2023 Assessment & Plan (1) Transaminitis: Plan: gallbladder findings reactive to acute hepatitis regular diet stop abx no indication to remove gallbladder ? etiology of hepatitis possibly viral Admission and Anticipated Discharge Date Admission Date: December 17, 2023 Subjective some pain but improved Review of Systems Constitutional: no fever and no chills Eyes: no problem reported Respiratory: no cough and no dyspnea Cardiovascular: no chest pain Gastrointestinal: no abdominal pain, no nausea and no vomiting Genitourinary: no dysuria Musculoskeletal: no back pain Neurologic: no generalized weakness Psychiatric: no behavioral changes Physical Exam Constitutional: WD/WN, vitals as above Eyes: PERRL, conjunctivae normal, anicteric sclerae Gastrointestinal (Abdomen): Inspection/Auscultation: abdomen normal to inspection and normal bowel sounds; abdomen not distended Percussion/Palpation: abdomen soft; abdomen nontender, no guarding and abdomen not rigid Musculoskeletal: Head/Neck/Chest: normocephalic and head atraumatic Skin: no rashes, warm and dry Results & Data Vital Signs (Past 12 Hours) Vital Signs Temp Pulse Resp BP Pulse Ox O2 Del Method 12/18/23 08:38 36.7 C 68 16 119/82 97 Room Air
--- NOTE | 2023-12-18 10:03 | Discharge Summary ---
Date of Service December 18, 2023 Admission HPI Per Admitting Provider 33 year old female with a past medical history of anxiety presenting with fever x 3 days and RUQ pain. Pain x 2 days. Worst RUQ, decreased appetite. Denies chest pain, dyspnea, diarrhea, constipation. Tried anti-acids at home with minimal relief. 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 No prior abdominal surgeries. In ED- transaminitis with HIJ=[id number], FHY=[id number]. Gallbladder US with acute cholecystitis, no cholelithiasis. Admission Exam Per Admitting Provider Constitutional: well-appearing, no acute distress HEENT: NCAT, no conjunctival injection CV: regular rhythm, no murmur appreciated, extremities well-perfused, no LE edema Resp: CTABL, no wheezes/rales/rhonchi appreciated, no increased work of breat viraj GI: soft, nondistended, +RUQ tenderness, BS normoactive MSK: no gross deformities appreciated Skin: warm, dry, no rash appreciated Neuro: alert, oriented, no focal neurologic deficit appreciated Principal Diagnosis Nausea, RUQ pain, diarrhea, elevated LFTs Discharge Exam General: 33yo female sitting up in bed upon entry, NAD, wanting to go home, eating breakfast HEENT: head atraumatic, normocephalic, mmm, trachea midline Resp: even/unlabored, no w/c/r, on room air CV: RRR, no significant m/r/g, no pitting edema/calf tenderness, well perfused GI: +BS, slight distension but nontender, no guarding/rebound : no mariano MSK/Neuro/Psych: nonfocal, answering questions appropriately, no slurred speech/facial droop, alert/oriented x 3 Skin: no rashes/obvious lesions appreciated Discharge Data Allergies Allergy/AdvReac Type Severity Reaction Status Date / Time cephalexin [From Keflex] Allergy Severe tongue Verified 12/17/23 00:41 swelling Consultations 12/17/23 00:35 ED Decision to Admit Stat 12/17/23 01:37 Consult General Surgery Routine Procedures Performed Operation Date: 12/18/23 12:05 <No data on this case meets the specified criteria> Ordered Studies Gallbladder Ultrasound 12/16/23 23:00 Exam(s): US GALLBLADDER EXAM: US Abdomen Limited, Gallbladder CLINICAL HISTORY: Reason for exam: epi pain. TECHNIQUE: Real-time ultrasound of the right upper quadrant with image documentation. COMPARISON: No relevant prior studies available. FINDINGS: Gallbladder: Extensive gallbladder wall thickening measuring 1 cm in thickness. Gallbladder is nondistended. Trace pericholecystic fluid. No cholelithiasis. Common bile duct: Common bile duct measures 1.9 mm diameter. No stones. No dilation. Pancreas: Unremarkable as visualized. IMPRESSION: Findings suggestive acute cholecystitis. Clinical correlation recommended. Electronically signed by: Donny Ramos MD 12/17/23 00:20 AM Hepatobiliary Scan Nuclear Medicine 12/17/23 00:54 NUCLEAR HEPATOBILIARY SCAN WITH EJECTION FRACTION IMAGING CLINICAL HISTORY: Upper abdominal pain. Abnormal right upper quadrant ultrasound. COMPARISON STUDY: Abdominal ultrasound dated 12/16/2023. TECHNIQUE: Dynamic images of the liver and anterior abdomen were obtained every 5 minutes for a total of 60 minutes following the IV administration of 5.5 mCi of technetium 99m Mebrofenin. 1.41 mcg of sincalide was then injected with additional images acquired every 5 minutes for 45 minutes to calculate the gallbladder ejection fraction. FINDINGS: The hepatobiliary scan shows prompt and homogeneous hepatic uptake. There is visualized activity within the intra and extrahepatic biliary tree at 10 minutes, and within the gallbladder at 10 minutes. There is normal biliary to bowel transit, with small bowel visualized by 30 minutes. There is likely reflux of tracer into the stomach. On the sincalide imaging, the gallbladder ejection fraction was measured at 98%. IMPRESSION: 1. There is no scintigraphic evidence of cholecystitis. 2. The gallbladder ejection fraction measured 98% which is normal. ACT 112: Negative or not required by law. Electronically signed by: Armin El M.D. 12/17/2023 2:14 PM Hospital Course (1) Transaminitis: 33-year-old female with past medical history significant for anxiety presented with a fever for 3 days and right upper quadrant pain for 2 days worse in the right upper quadrant along with decreased appetite and nausea with diarrhea but no vomiting, not improved with trial of OTC anti-acids. On admission patient with a normal white count and was afebrile however AST and ALT were elevated at 1142/2278 respectively however normal T. bili and alk phos. Gallbladder ultrasound was obtained which was consistent with acute cholecystitis however no cholelithiasis found. Patient was placed on Cipro Flagyl and general surgery was consulted and patient underwent HIDA scan which was negative with a normal EF. Surgery was initially planned however canceled. Patient was provided diet and had no further nausea or right upper quadrant pain and her LFTs did have some improvement however review of home medications showed she has a prescription for Cymbalta, Flexeril, and also takes cod liver oil. Appears that Cymbalta was recently started earlier this year and increased up to 60 mg last month and can cause some elevation of liver enzymes. It is recommended after discussion with supervising provider that the patient reduce this to 20 mg at discharge and follow-up with her primary care about ongoing treatment of her anxiety/depression. She did note that she had prior good response to sertraline but was attempting to Cymbalta to help with her chronic neck pain. She had no further diarrhea but could have had a viral enteritis. 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 EBV, hepatitis panel, parvovirus were drawn while inpatient and pending at discharge however patient with significant improvement in her symptoms and wanting to go home. Of note does appear to have parvovirus testing in the system from 2020 which indicates prior infection and immunity. Recommend she have her LFTs repeated on Friday and follow-up with her primary care for follow-up of send out testing. Patient is to return with any increased abdominal pain nausea, vomiting, fevers or any other symptoms concerning for her. Also recommended that she stop her cod liver oil supplementation which is an uncommon side effect can cause mild increases in serum ALT levels without changes in alk phos or bilirubin levels. Lyme testing negative AST/ALT 725/1703 at time of discharge. Encouraged to avoid tylenol at discharge and can use ibuprofen for headache/fever or pain. (2) Acute cholecystitis: initial concerns for such, but negative HIDA scan and no surgery planned. outpt lab testing pending, decreased cymbalta as above and rec LFT repeat w/ PCP next week (3) Anxiety: As above, Cymbalta rec to decrease to 60mg. Was given evening 5/1 and ALT around the same which could be related. F/u PCP to consider going back on sertaline vs other for ongoing symptoms. ?prn vistaril Total Time Total Time Spent Total Time Spent (In Minutes): 40 Discharge Plan Discharge Items Patient Disposition: Home - Self-Care Reason For Visit: ACUTE CHOLECYSTITIS Discharge Diagnosis: Elevated LFTs, nausea/diarrhea, abdominal pain Condition on Discharge: Good Goals: You have been hospitalized for an acute medical problem. During your stay at [facility], we have made an effort to correct the problem that brought you to the hospital while keeping you as comfortable as possible. Medications were used to bring your condition under control and your discharge instructions will include directions for any medications you should take after leaving the hospital. Please make sure you see your Primary Care Provider as pa rt of your follow up plan. Activity: Resume your previous activity Non-emergency contact: Primary Care Provider Call non-emergency contact if: you have any medication questions, your symptoms worsen, your pain is not controlled and you have a fever Follow-up/Referrals: Jaja Ge CRNP [Primary Care Provider] - 12/23/23 3:00 pm Diet: Regular Ambulatory Orders: Hepatic Function (Liver) Panel (Routine) Timeframe: 20231222 Location: Determined by Patient Ordered By: Alison Hay Attending Provider Instructions: You have been hospitalized for abdominal pain, nausea and elevated LFTs which were concerning for acute gallbladder infection. General surgery was consulted and HIDA scan was performed which was negative and additional testing to rule out other causes were sent. As discussed, I suspect you may have had a viral GI illness given the diarrhea and fever but no stool samples were collected and typically self limited. You also have been on cod liver oil as well as Cymbalta which can also contribute to elevations and some of your symptoms. We are recommending cutting back on your Cymbalta to 20mg daily to prevent withdrawals but also recommend discussing in follow up with primary care about switching to alternative medication. Would AVOID cod liver oil in the meantime. We have ordered repeat liver function testing to be done on Friday and forwarded t your primary care. Please avoid Tylenol in the meantime,ibuprofen for headache/fever as needed. Please follow up with primary care in the next 7-10 days to monitor your status. Please return to the ER with any increased abdominal pain, nausea, diarrhea, inability to keep up with oral intake, fever, or for any other symptoms concerning for you. It has been a pleasure being a part of the medical team providing for you while you have been in the hospital. Take care! Pending Studies at Discharge: Yes Studies:: Hepatitis panel, EBV, Parvovirus, Lyme Stand-Alone Forms: My [facility], Smoking Cessation Medications and DC Order Prescriptions: New duloxetine [Cymbalta] 20 mg capsule,delayed release(DR/EC) 20 mg PO DAILY Qty: 30 0RF Continued ipratropium bromide 21 mcg (0.03 %) spray,non-aerosol 2 spray intranasal BID Qty: 30 4RF Rx Instructions: administer into each nostril fluticasone propionate 110 mcg/actuation HFA aerosol inhaler 1 puff inhalation BID Qty: 12 2RF Noro-Mag 145 mg PO DAILY Held cyclobenzaprine 5 mg tablet 5 - 10 mg PO DIRECTED PRN (Reason: muscle spasm) Hold Instructions: Resume on 01/21/24. Discontinued duloxetine 20 mg capsule,delayed release(DR/EC) 20 mg PO BID Qty: 60 4RF Rx Instructions: pt aware dose change weaning off cod liver oil Capsule 1 cap PO [id number] Discharge Orders: Discharge Order (Routine); Ordered 12/18/23 Ordered By: Alison Carnes Admission Data Admit Date/Time: 12/17/23 00:51 Attending Provider: Tevin Umana Admit Provider: Deena Whittaker Primary Care Provider: Jaja Ge Other Providers: Al Christianson; Mike Lemons Other Interventions: Discharge Summary Assessment (RN) Last Done: 12/18/23 10:20 Coding Level of Care Code 80188 INP/OBS DISCH >30 MIN Diagnoses Transaminitis R74.01 Acute cholecystitis K81.0 Anxiety F41.9
[2023-12-18 11:52] LABS: HBSAG NON-REACTIVE (NON-REACTIVE); Hepatitis A Antibody IgM NON-REACTIVE (NON-REACTIVE); Hepatitis B Core Antibody IgM NON-REACTIVE (NON-REACTIVE)
[2023-12-18 15:57] LABS: Epstein Barr Virus Early Ag Ab <9.00 U/mL
[2023-12-21 23:48] LABS: Parvovirus IgG 4.1 (<0.9); Parvovirus IgM 0.1 (<0.9)
== END 2023-12-18 11:07 | disposition home or self-care (01) | DRG 446 ==
LOC: ED 21:43 → SUATTDRO 12-17 00:51 → 3W 12-17 00:51 → INTOOBSV 12-17 00:51 → 3W 12-17 01:32